=== PATIENT | female | born 1970 | race Two or more races ===

== ENCOUNTER 2023-07-08 15:38 | Inpatient (IN) | payer SELFPAY ==
[~2023-07-08] VITALS: Ht 152.4 cm; Wt 76.0 kg
[2023-07-08] MEDS ORDERED: amLODIPine BESYLATE 5 MG TAB PO ONE (16:30)
[2023-07-08 16:58] LABS: Alanine Aminotransferase 21 U/L (7-40); Albumin 4.8 g/dL (3.2-4.8); Alkaline Phosphatase 95 U/L (46-116); Anion Gap 8 (5-15); Aspartate Aminotransferase 15 U/L (13-40); BUN/Creatinine Ratio 33.3 (10.0-20.0); Bilirubin, Total 0.4 mg/dL (0.2-1.0); Blood Urea Nitrogen 17 mg/dL (9-23); Calcium 9.7 mg/dL (8.7-10.4); Carbon Dioxide 25 mmol/L (20-30); Chloride 106 mmol/L (98-107); Glucose 112 mg/dL (74-106); Potassium 4.1 mmol/L (3.5-5.1); Sodium 139 mmol/L (136-145); Total Protein 7.7 g/dL (5.7-8.2)
[2023-07-08 17:01] VITALS: PULSE 78; RESP 16; O2SAT 97
[2023-07-08 17:41] LABS: Basophils # (auto) 0.1 10 ^3/uL (0-0.2); Eosinophils # (auto) 0.2 10 ^3/uL (0-0.8); Eosinophils % (auto) 3.2 % (0.0-7.0); Hematocrit 30.7 % (41.0-53.0); Hemoglobin 9.4 g/dL (13.5-17.5); Lymphocytes # (auto) 3.1 10 ^3/uL (0.4-5.4); Lymphocytes % (auto) 43.1 % (10.0-50.0); Mean Corpuscular Hgb Conc. 30.5 g/dL (32.0-36.0); Mean Corpuscular Volume 62.3 fL (80.0-100.0); Monocytes # (auto) 0.6 10 ^3/uL (0-1.3); Monocytes % (auto) 7.6 % (0.0-12.0); Neutrophils # (auto) 3.3 10 ^3/uL (1.6-8.6); Neutrophils % (auto) 45.1 % (37.0-80.0); Nucleated Red Blood Cells % 0.3 %; Red Blood Cells 4.92 10^6/uL (4.5-5.90); White Blood Cell 7.3 10^3/uL (4.4-10.8)
[2023-07-08 17:43] LABS: Red Cell Distribution Width 25.2 % (11.8-14.3)
[2023-07-08 18:03] LABS: Urine Bacteria NONE SEEN /hpf (None Seen); Urine Blood Negative /uL (Negative); Urine Clarity Clear (Clear); Urine Protein, UAD Negative (Negative); Urine Specific Gravity 1.016 (1.001-1.035); Urine Urobilinogen Normal (Negative); Urine WBC 1 /hpf (0 - 3)
[2023-07-08 18:08] LABS: Urine Color STRAW (Yellow)
[2023-07-08 18:33] LABS: Platelet Estimate Increased
[2023-07-08 18:36] LABS: Anisocytosis Moderate; Hypochromia Marked
[2023-07-08 18:37] LABS: Ovalocytes MODERATE
[2023-07-08 18:38] LABS: Stomatocytes Few
[2023-07-08] MEDS ORDERED: cloNIDine HCL 0.1 MG TAB PO ONE (20:15)
[2023-07-08] MEDS ORDERED: hydrALAZINE HCL 20 MG/ML VL IV PRN (22:30)
[2023-07-08] MEDS ORDERED: ONDANSETRON HCL 4 MG/2 ML VIAL IV PRN (22:30)
[2023-07-08] MEDS ORDERED: ONDANSETRON ODT 4 MG TAB PO ONE (22:30)
[2023-07-08] MEDS ORDERED: NITROGLYCERIN 0.4 MG SL TAB SL PRN (22:30)
[2023-07-08] MEDS ORDERED: DOCUSATE SOD 100 MG CAP PO PRN (22:30)
[2023-07-08] MEDS ORDERED: MORPHINE SULFATE INJ 2 MG/ml SYRG IV PRN (22:30)
[2023-07-08] MEDS ORDERED: KETOROLAC TROMETH 60MG/2ML VIAL IM ONE (22:30)
[2023-07-08] MEDS ORDERED: ACETAMINOPHEN 325 MG TAB PO PRN (22:30)
[2023-07-09 01:58] VITALS: PULSE 84; RESP 20; O2SAT 98
[2023-07-09 06:56] LABS: Basophils # (auto) 0.1 10 ^3/uL (0-0.2); Eosinophils # (auto) 0.3 10 ^3/uL (0-0.8); Hemoglobin 9.1 g/dL (13.5-17.5); Lymphocytes # (auto) 2.8 10 ^3/uL (0.4-5.4); Nucleated Red Blood Cells % 0.1 %
[2023-07-09 06:59] LABS: Basophils % (auto) 1.1 % (0.0-2.0); Eosinophils % (auto) 4.5 % (0.0-7.0); Hematocrit 30.3 % (41.0-53.0); Lymphocytes % (auto) 46.9 % (10.0-50.0); Mean Corpuscular Hemoglobin 18.9 pg (28.0-32.0); Mean Corpuscular Hgb Conc. 30.2 g/dL (32.0-36.0); Mean Corpuscular Volume 62.5 fL (80.0-100.0); Monocytes # (auto) 0.5 10 ^3/uL (0-1.3); Monocytes % (auto) 8.1 % (0.0-12.0); Neutrophils # (auto) 2.4 10 ^3/uL (1.6-8.6); Neutrophils % (auto) 39.4 % (37.0-80.0); Red Blood Cells 4.84 10^6/uL (4.5-5.90); White Blood Cell 6.1 10^3/uL (4.4-10.8)
[2023-07-09 07:06] LABS: Alanine Aminotransferase 17 U/L (7-40); Albumin 4.3 g/dL (3.2-4.8); Alkaline Phosphatase 77 U/L (46-116); Anion Gap 9 (5-15); Aspartate Aminotransferase 14 U/L (13-40); BUN/Creatinine Ratio 29.6 (10.0-20.0); Blood Urea Nitrogen 16 mg/dL (9-23); Calcium 9.2 mg/dL (8.5-10.1); Carbon Dioxide 24 mmol/L (20-30); Chloride 106 mmol/L (98-107); Cholesterol 234 mg/dL (< 200); Glucose 100 mg/dL (74-106); LDL Cholesterol 183 mg/dL (< 100); Potassium 3.8 mmol/L (3.5-5.1); Red Cell Distribution Width 25.3 % (11.8-14.3); Sodium 139 mmol/L (136-145); Triglycerides 171 mg/dL (< 150)
[2023-07-09 07:07] LABS: Bilirubin, Total 0.5 mg/dL (0.2-1.0); HDL Cholesterol 48 mg/dL (40-59)
[2023-07-09 08:00] VITALS: PULSE 72; RESP 23; O2SAT 95
[2023-07-09] MEDS ORDERED: LISINOPRIL 10 MG TAB PO SCH (10:00)
[2023-07-09] MEDS ORDERED: amLODIPine BESYLATE 5 MG TAB PO SCH (10:00)
[2023-07-09 20:10] VITALS: PULSE 76; RESP 22; O2SAT 95
[2023-07-09] MEDS: ATORVASTATIN 20 MG TAB PO SCH (22:18)
[2023-07-09 23:27] VITALS: BP 155/81; PULSE 72; RESP 22; TEMP 97.7; O2SAT 98
[2023-07-09 23:45] VITALS: BP 155/81; PULSE 72; RESP 20; TEMP 97.7; O2SAT 100
[2023-07-10] VITALS (7 sets, daily range): BP systolic 115–136; BP diastolic 60–78; PULSE 71–100; RESP 17–20; TEMP 97.6–98.4; O2SAT 95–97
[2023-07-10 09:01] LABS: Basophils # (auto) 0 10 ^3/uL (0-0.2); Eosinophils # (auto) 0.3 10 ^3/uL (0-0.8); Mean Corpuscular Hgb Conc. 30.3 g/dL (32.0-36.0); Mean Corpuscular Volume 62.5 fL (80.0-100.0); Monocytes # (auto) 0.4 10 ^3/uL (0-1.3); White Blood Cell 5.7 10^3/uL (4.4-10.8)
[2023-07-10 09:04] LABS: Basophils % (auto) 0.7 % (0.0-2.0); Eosinophils % (auto) 4.6 % (0.0-7.0); Hematocrit 30.6 % (36.0-46.0); Hemoglobin 9.3 g/dL (12.2-16.2); Lymphocytes # (auto) 2.3 10 ^3/uL (0.4-5.4); Lymphocytes % (auto) 41.1 % (10.0-50.0); Mean Corpuscular Hemoglobin 18.9 pg (28.0-32.0); Monocytes % (auto) 6.5 % (0.0-12.0); Neutrophils # (auto) 2.7 10 ^3/uL (1.6-8.6); Neutrophils % (auto) 47.1 % (37.0-80.0); Red Blood Cells 4.89 10^6/uL (4.0-5.20)
[2023-07-10 09:07] LABS: Red Cell Distribution Width 25.1 % (11.8-14.3)
[2023-07-10 09:18] LABS: Alanine Aminotransferase 19 U/L (7-40); Albumin 4.3 g/dL (3.2-4.8); Alkaline Phosphatase 77 U/L (46-116); Anion Gap 8 (5-15); Aspartate Aminotransferase 13 U/L (13-40); BUN/Creatinine Ratio 27.6 (10.0-20.0); Blood Urea Nitrogen 16 mg/dL (9-23); Calcium 9.3 mg/dL (8.5-10.1); Carbon Dioxide 23 mmol/L (20-30); Chloride 107 mmol/L (98-107); Glucose 193 mg/dL (74-106); Potassium 3.7 mmol/L (3.5-5.1); Sodium 138 mmol/L (136-145)
[2023-07-10 09:19] LABS: Bilirubin, Total 0.5 mg/dL (0.2-1.0)
[2023-07-10] MEDS: amLODIPine BESYLATE 5 MG TAB PO SCH (09:51)
[2023-07-10] MEDS: LISINOPRIL 10 MG TAB PO SCH (09:51)
[2023-07-10] MEDS: ATORVASTATIN 20 MG TAB PO SCH (20:51)
[2023-07-11 05:00] VITALS: BP 101/68; PULSE 76; RESP 18; TEMP 98.1; O2SAT 96
[2023-07-11 07:16] LABS: Basophils # (auto) 0.1 10 ^3/uL (0-0.2); Hematocrit 32.9 % (36.0-46.0); Monocytes # (auto) 0.6 10 ^3/uL (0-1.3); Monocytes % (auto) 9.9 % (0.0-12.0); Nucleated Red Blood Cells % 0.1 %; White Blood Cell 5.9 10^3/uL (4.4-10.8)
[2023-07-11 07:19] LABS: Basophils % (auto) 0.9 % (0.0-2.0); Eosinophils # (auto) 0.3 10 ^3/uL (0-0.8); Eosinophils % (auto) 5.8 % (0.0-7.0); Hemoglobin 9.9 g/dL (12.2-16.2); Lymphocytes # (auto) 2.5 10 ^3/uL (0.4-5.4); Lymphocytes % (auto) 42.6 % (10.0-50.0); Mean Corpuscular Hemoglobin 19.2 pg (28.0-32.0); Mean Corpuscular Hgb Conc. 30.2 g/dL (32.0-36.0); Mean Corpuscular Volume 63.5 fL (80.0-100.0); Neutrophils # (auto) 2.4 10 ^3/uL (1.6-8.6); Neutrophils % (auto) 40.8 % (37.0-80.0); Red Blood Cells 5.18 10^6/uL (4.0-5.20)
[2023-07-11 07:26] LABS: Red Cell Distribution Width 24.9 % (11.8-14.3)
[2023-07-11 07:44] LABS: Alanine Aminotransferase 17 U/L (7-40); Albumin 4.5 g/dL (3.2-4.8); Alkaline Phosphatase 77 U/L (46-116); Anion Gap 9 (5-15); Aspartate Aminotransferase 14 U/L (13-40); BUN/Creatinine Ratio 27.9 (10.0-20.0); Blood Urea Nitrogen 17 mg/dL (9-23); Calcium 9.5 mg/dL (8.5-10.1); Carbon Dioxide 23 mmol/L (20-30); Chloride 107 mmol/L (98-107); Glucose 102 mg/dL (74-106); Potassium 4.3 mmol/L (3.5-5.1); Sodium 139 mmol/L (136-145)
[2023-07-11 07:45] LABS: Bilirubin, Total 0.5 mg/dL (0.2-1.0); Total Protein 7.3 g/dL (5.7-8.2)
[2023-07-11 08:00] VITALS: PULSE 66
[2023-07-11 09:00] VITALS: BP 122/75; PULSE 71; RESP 17; TEMP 98.6; O2SAT 96
[2023-07-11] MEDS ORDERED: LISI20TA56 PO (09:40)
[2023-07-11] MEDS ORDERED: AMLO1TAB23 PO (09:40)
[2023-07-11 10:31] LABS: Anisocytosis Moderate; Platelet Estimate Increased
[2023-07-11 10:32] LABS: Hypochromia Marked
[2023-07-11] MEDS: amLODIPine BESYLATE 5 MG TAB PO SCH (11:16)
[2023-07-11] MEDS: LISINOPRIL 10 MG TAB PO SCH (11:16)
[2023-07-11 13:00] VITALS: BP 138/62; PULSE 73; RESP 18; TEMP 98.8; O2SAT 97
== END 2023-07-11 16:15 | disposition home or self-care (01) | DRG 305 ==
LOC: ER 15:38 → EDBD 15:38 → EDSEX 23:02 → TELE 23:02 → TELE-WESTW 07-09 22:02
PROVIDERS: ADMIT Internal Medicine Geriatric Medicine; ATTEND Internal Medicine Geriatric Medicine
DX: I16.0 Hypertensive urgency (principal); E78.5 Hyperlipidemia, unspecified; E66.9 Obesity, unspecified; I10 Essential (primary) hypertension; R73.03 Prediabetes; R51.9 Headache, unspecified; Z91.199 Patient's noncompliance with other medical treatment and regimen due to unspecified reason; Z68.32 Body mass index [BMI] 32.0-32.9, adult
CPT/HCPCS: 36415; 70450; 71045; 80053; 80061; 81001; 81025; 83036; 84443; 84484; 85025; 93005; 93306; 96372; G0378; J1885; Q0162

== ENCOUNTER 2023-11-21 20:09 | Emergency (ER) | payer MEDICAID ==
[~2023-11-21] VITALS: Ht 152.4 cm; Wt 80.9 kg
[~2023-11-21 20:09] MED LIST: AMLO1TAB23 PO; LISI20TA56 PO
[2023-11-21 20:45] VITALS: BP 189/90; PULSE 84; RESP 16; O2SAT 98
[2023-11-21 20:59] LABS: Urine Bacteria None Seen /hpf (None Seen)
[2023-11-21] MEDS ORDERED: KETOROLAC TROMETH 60MG/2ML VIAL IM ONE (21:15)
[2023-11-21 21:20] LABS: Basophils # (auto) 0.1 10 ^3/uL (0-0.2); Hemoglobin 9.6 g/dL (12.2-16.2); Neutrophils % (auto) 34.3 % (37.0-80.0)
[2023-11-21 21:23] LABS: Basophils % (auto) 0.9 % (0.0-2.0); Eosinophils # (auto) 0.4 10 ^3/uL (0-0.8); Eosinophils % (auto) 4.1 % (0.0-7.0); Hematocrit 30.7 % (36.0-46.0); Lymphocytes # (auto) 4.6 10 ^3/uL (0.4-5.4); Lymphocytes % (auto) 51.6 % (10.0-50.0); Mean Corpuscular Hemoglobin 22.9 pg (28.0-32.0); Mean Corpuscular Hgb Conc. 31.2 g/dL (32.0-36.0); Mean Corpuscular Volume 73.5 fL (80.0-100.0); Monocytes # (auto) 0.8 10 ^3/uL (0-1.3); Monocytes % (auto) 9.1 % (0.0-12.0); Nucleated Red Blood Cells % 0.3 %; Red Blood Cells 4.18 10^6/uL (4.0-5.20); Red Cell Distribution Width 18.5 % (11.8-14.3); White Blood Cell 8.8 10^3/uL (4.4-10.8)
[2023-11-21 21:35] LABS: Alanine Aminotransferase 24 U/L (7-40); Albumin 4.8 g/dL (3.2-4.8); Alkaline Phosphatase 82 U/L (46-116); Anion Gap 5 (5-15); Aspartate Aminotransferase 17 U/L (13-40); BUN/Creatinine Ratio 29.6 (10.0-20.0); Bilirubin, Total 0.2 mg/dL (0.2-1.0); Blood Urea Nitrogen 21 mg/dL (9-23); Calcium 9.5 mg/dL (8.7-10.4); Carbon Dioxide 26 mmol/L (20-30); Chloride 108 mmol/L (98-107); Glucose 115 mg/dL (74-106); Lipase 52 U/L (12-53); Sodium 139 mmol/L (136-145); Total Protein 7.6 g/dL (5.7-8.2)
[2023-11-21 21:38] LABS: Urine Blood 2+ /uL (Negative); Urine Clarity Clear (Clear); Urine Color Light-Yellow (Yellow); Urine Protein, UAD TRACE (Negative); Urine Specific Gravity 1.026 (1.001-1.035); Urine Urobilinogen Normal (Negative); Urine WBC 2 /hpf (0 - 5)
[2023-11-21] MEDS ORDERED: IBUP-1455 PO (23:47)
[2023-11-21] MEDS ORDERED: DOCU-94 PO (23:47)
== END 2023-11-22 01:28 | disposition left against medical advice (07) ==
LOC: ER 20:09
DX: K59.00 Constipation, unspecified (principal); N20.0 Calculus of kidney; I10 Essential (primary) hypertension; Z79.899 Other long term (current) drug therapy; Z88.5 Allergy status to narcotic agent
CPT/HCPCS: 36415; 74176; 80053; 81001; 83690; 84484; 85025

== ENCOUNTER 2023-12-19 06:11 | Emergency (ER) | payer MEDICAID ==
[~2023-12-19] VITALS: Ht 165.1 cm; Wt 90.0 kg
[~2023-12-19 06:11] MED LIST changes: +DOCU-94 PO; +IBUP-1455 PO
[2023-12-19 07:34] LABS: Urine Bacteria None Seen /hpf (None Seen)
[2023-12-19 07:44] LABS: Eosinophils # (auto) 0.2 10 ^3/uL (0-0.8); Hemoglobin 10.3 g/dL (12.2-16.2); Monocytes # (auto) 0.6 10 ^3/uL (0-1.3); Nucleated Red Blood Cells % 0.2 %; White Blood Cell 7.5 10^3/uL (4.4-10.8)
[2023-12-19 07:45] LABS: Urine Blood Negative /uL (Negative); Urine Clarity Clear (Clear); Urine Color Light-Yellow (Yellow); Urine Protein, UAD Negative (Negative); Urine Specific Gravity 1.018 (1.001-1.035); Urine Urobilinogen Normal (Negative); Urine WBC 1 /hpf (0 - 5); Urine pH 5.5 (5.0-9.0)
[2023-12-19 07:46] LABS: Basophils # (auto) 0.1 10 ^3/uL (0-0.2); Basophils % (auto) 0.8 % (0.0-2.0); Eosinophils % (auto) 3.1 % (0.0-7.0); Hematocrit 33.7 % (36.0-46.0); Lymphocytes # (auto) 3.2 10 ^3/uL (0.4-5.4); Lymphocytes % (auto) 43.3 % (10.0-50.0); Mean Corpuscular Hemoglobin 22.6 pg (28.0-32.0); Mean Corpuscular Hgb Conc. 30.7 g/dL (32.0-36.0); Mean Corpuscular Volume 73.7 fL (80.0-100.0); Monocytes % (auto) 8.2 % (0.0-12.0); Neutrophils # (auto) 3.3 10 ^3/uL (1.6-8.6); Neutrophils % (auto) 44.6 % (37.0-80.0); Red Blood Cells 4.58 10^6/uL (4.0-5.20)
[2023-12-19 07:58] LABS: Alanine Aminotransferase 22 U/L (7-40); Albumin 4.4 g/dL (3.2-4.8); Alkaline Phosphatase 82 U/L (46-116); Anion Gap 5 (5-15); Aspartate Aminotransferase 13 U/L (13-40); Bilirubin, Total 0.2 mg/dL (0.2-1.0); Blood Urea Nitrogen 13 mg/dL (9-23); Carbon Dioxide 26 mmol/L (20-30); Chloride 108 mmol/L (98-107); Glucose 121 mg/dL (74-106); Lipase 49 U/L (12-53); Magnesium 1.9 mg/dL (1.6-2.6); Potassium 4.1 mmol/L (3.5-5.1); Sodium 139 mmol/L (136-145); Total Protein 7.6 g/dL (5.7-8.2)
[2023-12-19 08:06] LABS: INR 0.93 (0.9-1.15); Partial Thromboplastin Time 25.3 SEC (24.5-34.5); Prothrombin Time 9.9 sec (9.3-11.8)
[2023-12-19] MEDS ORDERED: FER325T PO (09:10)
[2023-12-19 09:20] VITALS: BP 139/79; PULSE 81; RESP 18; TEMP 98; O2SAT 98
== END 2023-12-19 09:30 | disposition home or self-care (01) ==
LOC: ER 06:11
DX: D50.9 Iron deficiency anemia, unspecified (principal); E86.0 Dehydration; R51.9 Headache, unspecified; Z88.6 Allergy status to analgesic agent
CPT/HCPCS: 36415; 70450; 74176; 80053; 81001; 81025; 83690; 83735; 84484; 85025; 85610; 85730

== ENCOUNTER 2025-01-23 23:02 | Inpatient (IN) | payer MEDICAID ==
[~2025-01-23] VITALS: Ht 160 cm; Wt 86.0 kg
[~2025-01-23 23:02] MED LIST changes: +FER325T PO
--- NOTE | 2025-01-23 23:28 | ED.PDOC ---
GI ASSESSMENT HPI Comments 55-year-old female came to ER for abdominal pain. Patient states she has been having intermittent episodes of abdominal pain for the past week. Abdominal pain located in his lower abdomen, radiating to her back, with the episodes of nausea and vomiting 3 times today. Denies any urinary symptoms or changes in bowel habits Chief Complaint: Abdominal Pain Time Seen by MD: 23:26 Primary Care Provider: NONE Reviewed Notes: Nurses Notes Allergies: Coded Allergies: Morphine (Verified Allergy, Severe, 07/08/23) Home Meds Active Scripts Ferrous Sulfate (FERROUS SULFATE) 325 Mg Tb, 1 TAB PO BID for 14 Days, #28 TAB 3 Refills Prov:DONG BAUTISTA MD 12/19/23 Ibuprofen Micronized (Ibuprofen) 800 Mg Tab, 800 MG PO Q8HP PRN, #30 TAB Prov:IGGY FOURNIER MD 11/21/23 Docusate Sodium (Colace) 100 Mg Cap, 1 CAP PO QHSP PRN, #30 CAP Prov:IGGY FOURNIER MD 11/21/23 Amlodipine Besylate (Amlodipine Besylate) 10 Mg Tab, 1 TAB PO DAILY, #30 TAB 5 Refills Prov:JOAN COLON MD 07/11/23 Lisinopril (Lisinopril) 20 Mg Tab, 1 TAB PO DAILY, #30 TAB 5 Refills Prov:JOAN COLON MD 07/11/23 Information Source: Patient Mode of Arrival: Ambulatory Timing: Days Duration: Intermittent Prehospital treatment: None Quality: Aching Vomitus: Watery Stool: Normal Recent: None Recent Hx of: Abdominal Operations Pain Location: Other (Lower abdomen) Review of Systems REVIEW OF SYSTEMS: No fever, no chills, or fatigue HEENT: No sore throat, no earache, no congestion, no neck pain. Cardiac: No chest pain. No palpitations. Lungs: No shortness of breath, no cough. GI: (+) nausea, (+) vomiting, no diarrhea, no constipation, (+) abdominal pain : No dysuria, frequency, or urgency. No hematuria. Musculoskeletal: No joint pain , no joint swelling, no extremity edema. (+) back pain Skin: No rash, no itching. Neuro: No headache, no dizziness, no weakness Vital Signs Vital Signs Date Time Temp Pulse Resp B/P (MAP) Pulse Ox O2 Delivery O2 Flow Rate FiO2 01/24/25 03:29 72 16 155/99 01/24/25 03:00 98.5 98 98.5 01/24/25 03:00 Room Air* 0 21 Physical Exam General: Awake, alert and oriented. No acute distress. Skin: Skin in warm, dry and intact. Appropriate color for ethnicity. Nailbeds pink with no cyanosis. HEENT: The head is normocephalic and atraumatic. Conjunctivae are clear without exudates or hemorrhage. Sclera is non-icteric. EOM are intact. No signs of nystagmus. Eyelids are normal in appearance without swelling or lesions. Oral mucosa is pink and moist Neck: The neck is supple with normal range of motion. No JVD. Cardiac: Heart rate and rhythm are normal. No murmurs, gallops, or rubs are auscultated. Respiratory: No signs of respiratory distress. Lung sounds are clear in all lobes bilaterally without rales, rhonchi, or wheezes. Abdominal: Abdomen is generally tender and distended. Bowel sounds are present and normoactive in all four quadrants. No CVA tenderness Extremities: Upper and lower extremities are atraumatic in appearance without deformity or edema. Neurological: The patient is awake, alert and oriented to person, place, and time with normal speech. Speech is clear. There is no facial asymmetry. Normal gait Psychiatric: Appropriate mood and affect. Good judgement and insight. 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 Was a procedure done?: No GI differential Dx Differential Diagnosis: Cholecystitis, Constipation, Diverticular disease, Gastritis/PUD, Gastroenteritis, Hernia, Ovarian cyst/torsion, Pancreatitis, UTI, Urolithiasis X-Ray, Labs, Meds, VS Vital Signs Date Time Temp Pulse Resp B/P (MAP) Pulse Ox O2 Delivery O2 Flow Rate FiO2 01/24/25 03:29 72 16 155/99 01/24/25 03:00 98.5 72 14 155/99 (117) 98 98.5 01/24/25 03:00 Room Air* 0 21 01/23/25 23:14 95 18 151/97 (115) 100 Lab Test 01/23/25 23:26 01/23/25 23:05 Range/Units White Blood Count 7.6 4.4-10.8 10^3/uL Red Blood Count 4.60 4.0-5.20 10^6/uL Hemoglobin 14.2 12.2-16.2 g/dL Hematocrit 41.8 36.0-46.0 % Mean Corpuscular Volume 90.9 80.0-100.0 fL Mean Corpuscular Hemoglobin 30.8 28.0-32.0 pg Mean Corpuscular Hemoglobin Concent 33.9 32.0-36.0 g/dL Red Cell Distribution Width 14.1 11.8-14.3 % Platelet Count 306 140-450 10^3/uL Mean Platelet Volume 7.7 6.9-10.8 fL Neutrophils (%) (Auto) 40.2 37.0-80.0 % Lymphocytes (%) (Auto) 48.0 10.0-50.0 % Monocytes (%) (Auto) 7.6 0.0-12.0 % Eosinophils (%) (Auto) 3.5 0.0-7.0 % Basophils (%) (Auto) 0.7 0.0-2.0 % Neutrophils # (Auto) 3.1 1.6-8.6 10 ^3/uL Lymphocytes # (Auto) 3.7 0.4-5.4 10 ^3/uL Monocytes # (Auto) 0.6 0-1.3 10 ^3/uL Eosinophils # (Auto) 0.3 0-0.8 10 ^3/uL Basophils # (Auto) 0.1 0-0.2 10 ^3/uL Nucleated Red Blood Cells 0.3 % Sodium Level 143 136-145 mmol/L Potassium Level 4.2 3.5-5.1 mmol/L Chloride Level 108 H 98-107 mmol/L Carbon Dioxide Level 26 20-31 mmol/L Anion Gap 9 5-15 Blood Urea Nitrogen 18 9-23 mg/dL Creatinine 0.77 0.550-1.02 mg/dL Glomerular Filtration Rate Calc 92 >90 mL/min BUN/Creatinine Ratio 23.4 H 10.0-20.0 Serum Glucose 191 H 74-106 mg/dL Lactic Acid Level 1.5 0.4-2.0 mmol/L Calcium Level 10.8 H 8.7-10.4 mg/dL Total Bilirubin 0.3 0.2-1.0 mg/dL Aspartate Amino Transferase (AST) 50 H <34 U/L Alanine Aminotransferase (ALT) 80 H 7-40 U/L Alkaline Phosphatase 96 46-116 U/L Total Protein 7.9 5.7-8.2 g/dL Albumin 5.0 H 3.2-4.8 g/dL Urine Color Light-yellow Yellow Urine Clarity Clear Clear Urine pH 6.0 5.0-9.0 Urine Specific [place] 1.024 1.001-1.035 Urine Protein Negative Negative Urine Ketones Negative Negative Urine Blood 1+ H Negative /uL Urine Nitrite Negative Negative Urine Bilirubin Negative Negative Urine Urobilinogen Normal Negative mg/dL Urine Leukocyte Esterase 2+ Negative /uL Urine RBC 11 0 - 4 /hpf Urine Microscopic WBC 32 H 0-5 /HPF Urine Squamous Epithelial Cells Few <5 /hpf Urine Transitional Epithelial Cells Few <2 /hpf Urine Bacteria Few H None Seen /hpf Urine Hyaline Casts Few 0 - 2 /lpf Urine Mucus Few None Seen Urine Glucose Trace Normal mg/dL Current Medications Medications (Trade) Dose Ordered Sig/Nick Route Start Time Stop Time Status Last Admin Morphine Sulfate 2 mg ONCE ONCE IV 01/23/25 23:30 01/23/25 23:31 DC 01/24/25 03:29 Ondansetron HCl (Zofran) 4 mg ONCE ONCE IV 01/23/25 23:30 01/23/25 23:31 DC 01/24/25 03:30 COMPUTERIZED TOMOGRAPHY ABDOMEN AND PELVIS WITHOUT CONTRAST REASON FOR EXAM: Generalized abdominal pain, abdominal distention COMPARISON: CT CT AB PEL WO CON-NO ORAL OR IV on DOS: 12/19/23, CT CT AB PEL WO CON-NO ORAL OR IV on DOS: 11/21/23 TECHNIQUE: Spiral scans were acquired from the diaphragm to the symphysis pubis without intravenous contrast administration. 2-D coronal and sagittal reformatted images were provided. Radiation optimization: All CT scans at this facility use at least one of these dose optimization techniques: Automated exposure control mA and/or kV adjustment per patient size (includes targeted exams where dose is matched to clinical indication) or iterative reconstruction. RADIATION DOSE: CTDI: 16 mGy DLP: 998 mGy-cm FINDINGS: Respiratory motion artifact degrades evaluation of the lung bases. There is no pleural effusion. There is no pericardial effusion. The spleen is not enlarged. The liver is enlarged at 19.6 cm. The liver is diffusely hypoattenuating. There are calcified gallstones. The gallbladder is not distended. Evaluation of the abdominal organs is suboptimal in the absence of intravenous contrast. Unenhanced appearance of the pancreas is unremarkable. The adrenal glands are normal. The kidneys are similar in size. There is no hydronephrosis of either kidney. There is no abdominal aortic aneurysm. No pathologic lymphadenopathy is identified by size criteria. There is no free fluid in the abdomen or pelvis. The urinary bladder is unremarkable. The uterus and ovaries are within normal limits. The colonic stool burden is small to moderate. The appendix is normal. There is no pathologic distention of the small bowel to suggest obstruction. There is a fat containing umbilical hernia. There is a lipoma within the right rectus abdominus musculature. No acute osseous abnormality is identified. IMPRESSION: Enlarged hypoattenuating liver. This may be secondary to steatosis or other diffuse hepatic process. Correlate clinically and with liver function tests. Normal appendix. No evidence of bowel obstruction. Time of 1ST Reevaluation: 23:24 Reevaluation 1ST: Unchanged Patient Education/Counseling: Prognosis Family Education/Counseling: No Family Present SEPSIS Sepsis Screen Physician Orders Ct Ab Pel Wo Con-No Oral Or Iv (01/23/25 23:16) Abdomen Limited (01/24/25 00:21) Vital Signs Date Time Temp Pulse Resp B/P (MAP) Pulse Ox O2 Delivery O2 Flow Rate FiO2 01/24/25 03:29 72 16 155/99 01/24/25 03:00 98.5 72 14 155/99 (117) 98 98.5 01/24/25 03:00 Room Air* 0 21 01/23/25 23:14 95 18 151/97 (115) 100 Laboratory Tests Test 01/23/25 23:26 Lactic Acid Level 1.5 mmol/L (0.4-2.0) White Blood Count 7.6 10^3/uL (4.4-10.8) Medications Medications Dose Ordered Sig/Nick Route Start Time Stop Time Status Last Admin Dose Admin Morphine Sulfate 2 mg ONCE ONCE IV 01/23/25 23:30 01/23/25 23:31 DC 01/24/25 03:29 Ondansetron HCl 4 mg ONCE ONCE IV 01/23/25 23:30 01/23/25 23:31 DC 01/24/25 03:30 Departure 1 Departure Time of Disposition: 00:20 Impression: Primary Impression: Intractable abdominal pain Additional Impression: Hepatomegaly Disposition: ADMITTED INPATIENT Condition: Stable Comments Patient admitted to hospitalist service for further treatment, evaluation and monitoring. Critical Care Note Critical Care Time?: No Stability Stability form required: No Heart Score Heart Score: Heart Score Response (Comments) Value History N/A 0 EKG N/A 0 Age N/A 0 Risk Factors N/A 0 Troponin N/A 0 Total 0 I personally scribed for NATO SINGH MD ([email or web address]) on 01/23/25 at 23:28. Electronically submitted by Luis Campos ([email or web address]). I personally scribed for NATO SINGH MD ([email or web address]) on 01/24/25 at 00:29. Electronically submitted by Luis Campos ([email or web address]). NATO SINGH MD Jan 23, 2025 23:28
[2025-01-23 23:39] LABS: Basophils # (auto) 0.1 10 ^3/uL (0-0.2); Basophils % (auto) 0.7 % (0.0-2.0); Eosinophils # (auto) 0.3 10 ^3/uL (0-0.8); Eosinophils % (auto) 3.5 % (0.0-7.0); Hematocrit 41.8 % (36.0-46.0); Hemoglobin 14.2 g/dL (12.2-16.2); Lymphocytes # (auto) 3.7 10 ^3/uL (0.4-5.4); Mean Corpuscular Hemoglobin 30.8 pg (28.0-32.0); Mean Corpuscular Hgb Conc. 33.9 g/dL (32.0-36.0); Mean Corpuscular Volume 90.9 fL (80.0-100.0); Monocytes # (auto) 0.6 10 ^3/uL (0-1.3); Monocytes % (auto) 7.6 % (0.0-12.0); Neutrophils # (auto) 3.1 10 ^3/uL (1.6-8.6); Neutrophils % (auto) 40.2 % (37.0-80.0); Nucleated Red Blood Cells % 0.3 %; Platelet Count (auto) 306 10^3/uL (140-450); Red Cell Distribution Width 14.1 % (11.8-14.3); White Blood Cell 7.6 10^3/uL (4.4-10.8)
[2025-01-23 23:54] LABS: Alkaline Phosphatase 96 U/L (46-116); Anion Gap 9 (5-15); BUN/Creatinine Ratio 23.4 (10.0-20.0); Blood Urea Nitrogen 18 mg/dL (9-23); Carbon Dioxide 26 mmol/L (20-31); Potassium 4.2 mmol/L (3.5-5.1); Sodium 143 mmol/L (136-145); Total Protein 7.9 g/dL (5.7-8.2)
[2025-01-24 00:05] LABS: Alanine Aminotransferase 80 U/L (7-40); Aspartate Aminotransferase 50 U/L (<34); Bilirubin, Total 0.3 mg/dL (0.2-1.0); Calcium 10.8 mg/dL (8.7-10.4); Chloride 108 mmol/L (98-107); Glucose 191 mg/dL (74-106)
[2025-01-24 00:12] LABS: Urine Bacteria FEW /hpf (None Seen); Urine Blood 1+ /uL (Negative); Urine Clarity Clear (Clear); Urine Color Light-Yellow (Yellow); Urine Hyaline Cast FEW /lpf (0 - 2); Urine Mucus FEW (None Seen); Urine Protein, UAD Negative (Negative); Urine Specific Gravity 1.024 (1.001-1.035); Urine Squamous Epithelial Cell FEW /hpf (<5); Urine Urobilinogen Normal (Negative); Urine WBC 32 /HPF (0-5)
--- NOTE | 2025-01-24 00:18 | DVH ---
COMPUTERIZED TOMOGRAPHY ABDOMEN AND PELVIS WITHOUT CONTRAST REASON FOR EXAM: Generalized abdominal pain, abdominal distention COMPARISON: CT CT AB PEL WO CON-NO ORAL OR IV on DOS: 12/19/23, CT CT AB PEL WO CON-NO ORAL OR IV on D OS: 11/21/23 TECHNIQUE: Spiral scans were acquired from the diaphragm to the symphysis pubis without intravenous c ontrast administration. 2-D coronal and sagittal reformatted images were provided. Radiation optimiza tion: All CT scans at this facility use at least one of these dose optimization techniques: Automated exposure control mA and/or kV adjustment per patient size (includes targeted exams where dose is mat ched to clinical indication) or iterative reconstruction. RADIATION DOSE: CTDI: 16 mGy DLP: 998 mGy-cm FINDINGS: Respiratory motion artifact degrades evaluation of the lung bases. There is no pleural effusion. The re is no pericardial effusion. The spleen is not enlarged. The liver is enlarged at 19.6 cm. The liver is diffusely hypoattenuating. There are calcified gallstones. The gallbladder is not distended. Evaluation of the abdominal orga ns is suboptimal in the absence of intravenous contrast. Unenhanced appearance of the pancreas is unr emarkable. The adrenal glands are normal. The kidneys are similar in size. There is no hydronephrosi s of either kidney. There is no abdominal aortic aneurysm. No pathologic lymphadenopathy is identifie d by size criteria. There is no free fluid in the abdomen or pelvis. The urinary bladder is unremar kable. The uterus and ovaries are within normal limits. The colonic stool burden is small to moderat e. The appendix is normal. There is no pathologic distention of the small bowel to suggest obstructi on. There is a fat containing umbilical hernia. There is a lipoma within the right rectus abdominus m usculature. No acute osseous abnormality is identified. IMPRESSION: Enlarged hypoattenuating liver. This may be secondary to steatosis or other diffuse hepatic process. Correlate clinically and with liver function tests. Normal appendix. No evidence of bowel obstruction.
--- NOTE | 2025-01-24 01:00 | DVH ---
INDICATION: Right upper quadrant, abdominal pain, inc LFT, hepatomegaly TECHNIQUE: Multiple real-time sonographic images were obtained of the right upper quadrant. COMPARISON: None FINDINGS: The liver demonstrates increased echogenicity. The liver measures 20.1 cm. There is no intrahepatic or extrahepatic ductal dilatation. The common duct measures 4 mm. A gallstone is seen. The gallbladder wall measures 1.8 mm and is within normal limits. The right kidney measures 12.5 cm. The right kidney is normal in contour, size, and shape. The echo genicity is normal. There is no hydronephrosis. The pancreas is not well visualized due to overlying bowel gas. IMPRESSION: 1. Hepatomegaly and increased echogenicity within the liver, which may be referable to hepatic steato sis or intrinsic hepatocellular disease. 2. Cholelithiasis without sonographic evidence for acute cholecystitis.
[2025-01-24] MEDS: MORPHINE SULFATE INJ 2 MG/ml SYRG IV ONE (03:29)
[2025-01-24] MEDS: ONDANSETRON HCL 4 MG/2 ML VIAL IV ONE (03:30)
--- NOTE | 2025-01-24 08:28 | DVHHP2 ---
History of Present Illness History of Present Illness 55-year-old female past medical history of hypertension, ?Unknown heart disease came to ER for abdominal pain X 1 week. Patient states she has been having intermittent episodes of abdominal pain for the past week. Abdominal pain located in his lower abdomen, radiating to her back, with the episodes of nausea and vomiting 3 times today. Denies any urinary symptoms or changes in bowel habits. Patient endorses she has some heart medications she takes but she does not know for what diagnosis and family will be bringing in the meds. Review of Systems Allergies: Coded Allergies: NO KNOWN ALLERGIES (Unverified , 01/24/25) Medications Current Medications Medications Dose Ordered Sig/Nick Route Start Time Stop Time Status Last Admin Dose Admin Ketorolac Tromethamine 15 mg ONCE PRN IV 01/24/25 06:00 01/29/25 05:59 Exam Vital Signs Vital Signs Date Time Temp Pulse Resp B/P (MAP) Pulse Ox O2 Delivery O2 Flow Rate FiO2 01/24/25 03:59 82 16 145/97 01/24/25 03:55 98.3 96 98.3 01/24/25 03:00 Room Air* 0 21 Exam GEN: Healthy appearing, well-developed, NAD. HEENT: NC/AT; MMM. CV: RRR, no m/r/g. LUNGS: CTAB, no w/r/c. ABD: Soft, NT/ND, NBS, no masses or organomegaly. Suprapubic tenderness. EXT: skin Warm, well perfused. no rashes. No clubbing, cyanosis, or edema. NEURO: Ambulating with no limitations. No focal deficits. Right paraspinal tenderness T10 Labs/Xrays Labs Test 01/23/25 23:26 01/23/25 23:05 Range/Units White Blood Count 7.6 4.4-10.8 10^3/uL Red Blood Count 4.60 4.0-5.20 10^6/uL Hemoglobin 14.2 12.2-16.2 g/dL Hematocrit 41.8 36.0-46.0 % Mean Corpuscular Volume 90.9 80.0-100.0 fL Mean Corpuscular Hemoglobin 30.8 28.0-32.0 pg Mean Corpuscular Hemoglobin Concent 33.9 32.0-36.0 g/dL Red Cell Distribution Width 14.1 11.8-14.3 % Platelet Count 306 140-450 10^3/uL Mean Platelet Volume 7.7 6.9-10.8 fL Neutrophils (%) (Auto) 40.2 37.0-80.0 % Lymphocytes (%) (Auto) 48.0 10.0-50.0 % Monocytes (%) (Auto) 7.6 0.0-12.0 % Eosinophils (%) (Auto) 3.5 0.0-7.0 % Basophils (%) (Auto) 0.7 0.0-2.0 % Neutrophils # (Auto) 3.1 1.6-8.6 10 ^3/uL Lymphocytes # (Auto) 3.7 0.4-5.4 10 ^3/uL Monocytes # (Auto) 0.6 0-1.3 10 ^3/uL Eosinophils # (Auto) 0.3 0-0.8 10 ^3/uL Basophils # (Auto) 0.1 0-0.2 10 ^3/uL Nucleated Red Blood Cells 0.3 % Sodium Level 143 136-145 mmol/L Potassium Level 4.2 3.5-5.1 mmol/L Chloride Level 108 H 98-107 mmol/L Carbon Dioxide Level 26 20-31 mmol/L Anion Gap 9 5-15 Blood Urea Nitrogen 18 9-23 mg/dL Creatinine 0.77 0.550-1.02 mg/dL Glomerular Filtration Rate Calc 92 >90 mL/min BUN/Creatinine Ratio 23.4 H 10.0-20.0 Serum Glucose 191 H 74-106 mg/dL Lactic Acid Level 1.5 0.4-2.0 mmol/L Calcium Level 10.8 H 8.7-10.4 mg/dL Total Bilirubin 0.3 0.2-1.0 mg/dL Aspartate Amino Transferase (AST) 50 H <34 U/L Alanine Aminotransferase (ALT) 80 H 7-40 U/L Alkaline Phosphatase 96 46-116 U/L Total Protein 7.9 5.7-8.2 g/dL Albumin 5.0 H 3.2-4.8 g/dL Urine Color Light-yellow Yellow Urine Clarity Clear Clear Urine pH 6.0 5.0-9.0 Urine Specific [place] 1.024 1.001-1.035 Urine Protein Negative Negative Urine Ketones Negative Negative Urine Blood 1+ H Negative /uL Urine Nitrite Negative Negative Urine Bilirubin Negative Negative Urine Urobilinogen Normal Negative mg/dL Urine Leukocyte Esterase 2+ Negative /uL Urine RBC 11 0 - 4 /hpf Urine Microscopic WBC 32 H 0-5 /HPF Urine Squamous Epithelial Cells Few <5 /hpf Urine Transitional Epithelial Cells Few <2 /hpf Urine Bacteria Few H None Seen /hpf Urine Hyaline Casts Few 0 - 2 /lpf Urine Mucus Few None Seen Urine Glucose Trace Normal mg/dL Assessment/Plan Assessment/Plan Diagnosis: Intractable abdominal pain Intractable nausea acute Gastroenteritis, infectious etiology likely Acute complicated cystitis Hypertension IV antibiotics Unasyn -continue home meds Prn pain meds Tylenol, [place], morphine Prn antiemetics clear liquid diet. Cardiac diet PPI IV daily Lovenox daily Med surge Full code Plan discussed with: Patient Date of Service: Jan 24, 2025 Billing Provider: ALEX WATERS MD Common Visit Codes: [id number] INP/OBS CARE (HIGH) Secondary Visit Codes: [id number] CARE PLAN 30 MINUTES ALEX WATERS MD Jan 24, 2025 08:28
[2025-01-24] MEDS: AMPICILLIN & SULBACTAM SODIUM 3 GM in SODIUM CHL 0.9% 100 ML IV SCH (08:30)
[2025-01-24] MEDS ORDERED: ONDANSETRON HCL 4 MG/2 ML VIAL IV PRN (08:30)
[2025-01-24] MEDS ORDERED: ACETAMINOPHEN 325 MG TAB PO PRN (08:30)
[2025-01-24] MEDS ORDERED: ONDANSETRON ODT 4 MG TAB PO PRN (10:00)
[2025-01-24] MEDS: LISINOPRIL 20 MG TAB PO SCH (10:10)
[2025-01-24] MEDS: ENOXAPARIN SOD 40 MG/0.4 ML SYRINGE SC SCH (10:10)
[2025-01-24] MEDS: SODIUM CHLORIDE 0.9% 1,000 ML IV ONE (10:10)
[2025-01-24] MEDS: KETOROLAC TROMETH 30 MG/ML 1ML VIAL IV PRN (10:12)
[2025-01-24] MEDS ORDERED: MORPHINE SULFATE 4 MG/ML SYR/VIAL IV PRN (10:15)
[2025-01-24] MEDS ORDERED: LORazepam 2MG/ML-1ML VIAL ONE (10:15)
[2025-01-24 12:00] VITALS: BP 121/66; PULSE 64; RESP 16; TEMP 98.6; O2SAT 97
[2025-01-24 12:17] VITALS: BP 121/66; PULSE 64; RESP 16; TEMP 97.8; O2SAT 94
[2025-01-24 12:18] VITALS: BP 121/66; PULSE 64; RESP 16; TEMP 97.8; O2SAT 94
[2025-01-24 16:00] VITALS: BP 121/66; RESP 18; O2SAT 96
[2025-01-24] MEDS: HYDROcodone-ACET 5/325MG TAB PO PRN (19:21)
[2025-01-24 19:29] VITALS: BP 136/72; PULSE 68; RESP 16; TEMP 97.8; O2SAT 94
[2025-01-24 21:00] VITALS: BP 151/72; PULSE 63; RESP 18; TEMP 97.8; O2SAT 95
[2025-01-25] VITALS (7 sets, daily range): BP systolic 107–153; BP diastolic 54–90; PULSE 59–68; RESP 16–18; TEMP 97.7–98.3; O2SAT 95–97
[2025-01-25 06:55] LABS: Basophils # (auto) 0 10 ^3/uL (0-0.2); Basophils % (auto) 0.6 % (0.0-2.0); Eosinophils # (auto) 0.3 10 ^3/uL (0-0.8); Eosinophils % (auto) 4.9 % (0.0-7.0); Hemoglobin 13.4 g/dL (12.2-16.2); Lymphocytes % (auto) 46.4 % (10.0-50.0); Mean Corpuscular Hemoglobin 30.8 pg (28.0-32.0); Mean Corpuscular Hgb Conc. 34.3 g/dL (32.0-36.0); Mean Corpuscular Volume 89.9 fL (80.0-100.0); Monocytes # (auto) 0.6 10 ^3/uL (0-1.3); Monocytes % (auto) 8.8 % (0.0-12.0); Neutrophils # (auto) 2.5 10 ^3/uL (1.6-8.6); Neutrophils % (auto) 39.3 % (37.0-80.0); Nucleated Red Blood Cells % 0.2 %; Platelet Count (auto) 297 10^3/uL (140-450); Red Blood Cells 4.34 10^6/uL (4.0-5.20); Red Cell Distribution Width 14.3 % (11.8-14.3); White Blood Cell 6.5 10^3/uL (4.4-10.8)
[2025-01-25 07:16] LABS: Albumin 4.3 g/dL (3.2-4.8); Alkaline Phosphatase 72 U/L (46-116); Anion Gap 10 (5-15); BUN/Creatinine Ratio 18.6 (10.0-20.0); Bilirubin, Total 0.5 mg/dL (0.2-1.0); Blood Urea Nitrogen 11 mg/dL (9-23); Calcium 9.7 mg/dL (8.7-10.4); Carbon Dioxide 25 mmol/L (20-31); Chloride 107 mmol/L (98-107); Potassium 3.9 mmol/L (3.5-5.1); Sodium 142 mmol/L (136-145); Total Protein 6.9 g/dL (5.7-8.2)
[2025-01-25 07:18] LABS: Alanine Aminotransferase 89 U/L (7-40); Aspartate Aminotransferase 75 U/L (<34); Glucose 141 mg/dL (74-106)
[2025-01-25] MEDS: amLODIPine BESYLATE 5 MG TAB PO SCH (10:00)
[2025-01-25] MEDS ORDERED: MAALOX PLUS or MAALOX 30 ML PO PRN (14:45)
[2025-01-25] MEDS ORDERED: KETOROLAC TROMETH 30 MG/ML 1ML VIAL IV PRN (14:45)
--- NOTE | 2025-01-25 15:36 | DVHPNRES ---
Progress Note Date Seen: Jan 25, 2025 Resident Creating Document: REGULO HERNANDEZ RESIDENT Has the PT tested + for MRSA If YES, has PT been informed?: No Medical Necessity Reason Pt with a Central, PICC or Fol: No Subjective Review of Systems A 55-year-old female past medical history of hypertension came to ER for abdominal pain X 1 week. Patient states she has been having intermittent episodes of abdominal pain for the past week. Abdominal pain located in his lower abdomen, radiating to her back, with the episodes of nausea and vomiting 3 times today. 01/25/25: Enlarged hypoattenuating liver. This may be secondary to steatosis or other diffuse hepatic process, UA UTI, LFTs elevated Objective vital signs Vital Sign Date Time Temp Pulse Resp B/P (MAP) Pulse Ox O2 Delivery O2 Flow Rate FiO2 01/25/25 13:00 98.0 61 17 138/73 (94) 97 98.0 01/24/25 20:51 Room Air* 0 21 Total Intake and Output 01/24/25 01/24/25 01/25/25 15:00 23:00 07:00 Intake Total 200 ml 300 ml Balance 200 ml 300 ml medications Current Medications Medications Dose Ordered Sig/Nick Route Start Time Stop Time Status Last Admin Dose Admin Ketorolac Tromethamine 15 mg ONCE PRN IV 01/24/25 06:00 01/29/25 05:59 01/24/25 10:12 15 MG Acetaminophen/ Hydrocodone Bitart 1 tab Q4HP PRN PO 01/24/25 08:30 01/25/25 09:07 1 TAB Enoxaparin Sodium 40 mg DAILY SC 01/24/25 10:00 01/25/25 09:08 40 MG Acetaminophen 650 mg Q6HP PRN PO 01/24/25 08:30 Morphine Sulfate 2 mg Q4HPRN PRN IV 01/24/25 10:15 Ampicillin Sodium/ Sulbactam Sodium 3 gm/Sodium Chloride 100 ml @ 100 mls/hr Q6H IV 01/24/25 08:30 01/25/25 09:08 100 MLS/HR Lisinopril 20 mg DAILY PO 01/24/25 10:00 01/24/25 10:10 20 MG Amlodipine Besylate 10 mg DAILY PO 01/25/25 10:00 Ondansetron HCl 4 mg Q4HP PRN PO 01/24/25 10:15 Ketorolac Tromethamine 15 mg Q6HPRN PRN IV 01/25/25 14:45 01/30/25 14:44 Pantoprazole Sodium 40 mg DAILY IV 01/25/25 14:45 Al Hydrox/Mg Hydrox/Simethicone 15 ml Q8HP PRN PO 01/25/25 14:45 Examination GEN: Healthy appearing, well-developed, NAD. HEENT: NC/AT; MMM. CV: RRR, no m/r/g. LUNGS: CTAB, no w/r/c. ABD: Soft, NT/ND, NBS, no masses or organomegaly. Suprapubic and epigastric tenderness. EXT: skin Warm, well perfused. no rashes. No clubbing, cyanosis, or edema. NEURO: Ambulating with no limitations. No focal deficits. laboratory and microbiology Laboratory Tests 01/25/25 06:40 Test 01/25/25 06:40 Range/Units Serum Glucose 141 H 74-106 mg/dL Problem List/Assessment/Plan Problem List/Assessment/Plan #Intractable abdominal pain #Intractable nausea #acute Gastroenteritis, infectious etiology likely #Acute complicated cystitis #Hypertension #GERD #Fatty liver #Transaminitis due to above Clear liquid diet Unasyn IV Protonix IV Ketorolac Tylenol Maalox Lisinopril Amlodipine Case discussed with Dr Briceno Plan discussed with: Patient, Other My Orders My Orders Orders - REGULO HERNANDEZ Procedure Category Date Status Time Sodium Chloride 0.9% PHA 01/25/25 In Process 14:45 Ketorolac Injection PHA 01/25/25 In Process (Toradol Injection) 14:45 Pantoprazole PHA 01/25/25 In Process (Protonix) 14:45 Alum & Mag PHA 01/25/25 In Process Hydrox-Simethicone 14:45 Date of Service: Jan 25, 2025 Billing Provider: CRAIG BRICENO MD Common Visit Codes: [id number] INP/OBS CARE(HIGH) REGULO HERNANDEZ RESIDENT Jan 25, 2025 15:36 CRAIG BRICENO MD Feb 01, 2025 21:24
[2025-01-25] MEDS: ONDANSETRON ODT 4 MG TAB PO PRN (15:40)
[2025-01-25] MEDS: PANTOPRAZOLE 40 MG/10 ML VIAL INJ IV SCH (15:40)
[2025-01-25] MEDS: SODIUM CHLORIDE 0.9% 1,000 ML IV ONE (16:06)
[2025-01-26 00:58] VITALS: BP 137/76; PULSE 65; RESP 16; TEMP 98.1; O2SAT 99
[2025-01-26 04:58] VITALS: BP 124/85; PULSE 74; RESP 17; TEMP 98.6; O2SAT 97
[2025-01-26 08:30] VITALS: BP 116/78; PULSE 62; RESP 17; TEMP 97.7; O2SAT 95
[2025-01-26] MEDS ORDERED: ACET-1079 PO (10:28)
[2025-01-26] MEDS ORDERED: PANT40TA2 PO (10:28)
[2025-01-26] MEDS ORDERED: CIP500T PO (10:28)
[2025-01-26] MEDS ORDERED: CALC600C PO (10:28)
[2025-01-26 13:30] VITALS: BP 120/65; PULSE 66; RESP 18; TEMP 97.9; O2SAT 96
--- NOTE | 2025-01-26 19:12 | DVHDSRES ---
Discharge Summary Date of Admission Resident Creating Document: REGULO HERNANDEZ RESIDENT Jan 24, 2025 at 08:21 Date of Discharge: Jan 26, 2025 Admitting Diagnosis #Intractable abdominal pain Labs/Diagnostic Data: Laboratory Results Test 01/25/25 06:40 01/23/25 23:26 01/23/25 23:05 White Blood Count 6.5 10^3/uL (4.4-10.8) Red Blood Count 4.34 10^6/uL (4.0-5.20) Hemoglobin 13.4 g/dL (12.2-16.2) Hematocrit 39.0 % (36.0-46.0) Mean Corpuscular Volume 89.9 fL (80.0-100.0) Mean Corpuscular Hemoglobin 30.8 pg (28.0-32.0) Mean Corpuscular Hemoglobin Concent 34.3 g/dL (32.0-36.0) Red Cell Distribution Width 14.3 % (11.8-14.3) Platelet Count 297 10^3/uL (140-450) Mean Platelet Volume 7.5 fL (6.9-10.8) Neutrophils (%) (Auto) 39.3 % (37.0-80.0) Lymphocytes (%) (Auto) 46.4 % (10.0-50.0) Monocytes (%) (Auto) 8.8 % (0.0-12.0) Eosinophils (%) (Auto) 4.9 % (0.0-7.0) Basophils (%) (Auto) 0.6 % (0.0-2.0) Neutrophils # (Auto) 2.5 10 ^3/uL (1.6-8.6) Lymphocytes # (Auto) 3.0 10 ^3/uL (0.4-5.4) Monocytes # (Auto) 0.6 10 ^3/uL (0-1.3) Eosinophils # (Auto) 0.3 10 ^3/uL (0-0.8) Basophils # (Auto) 0 10 ^3/uL (0-0.2) Nucleated Red Blood Cells 0.2 % Sodium Level 142 mmol/L (136-145) Potassium Level 3.9 mmol/L (3.5-5.1) Chloride Level 107 mmol/L (98-107) Carbon Dioxide Level 25 mmol/L (20-31) Anion Gap 10 (5-15) Blood Urea Nitrogen 11 mg/dL (9-23) Creatinine 0.59 mg/dL (0.550-1.02) Glomerular Filtration Rate Calc 108 mL/min (>90) BUN/Creatinine Ratio 18.6 (10.0-20.0) Serum Glucose 141 mg/dL (74-106) Calcium Level 9.7 mg/dL (8.7-10.4) Total Bilirubin 0.5 mg/dL (0.2-1.0) Aspartate Amino Transferase (AST) 75 U/L (<34) Alanine Aminotransferase (ALT) 89 U/L (7-40) Alkaline Phosphatase 72 U/L (46-116) Total Protein 6.9 g/dL (5.7-8.2) Albumin 4.3 g/dL (3.2-4.8) Lactic Acid Level 1.5 mmol/L (0.4-2.0) Urine Color Light-yellow (Yellow) Urine Clarity Clear (Clear) Urine pH 6.0 (5.0-9.0) Urine Specific [place] 1.024 (1.001-1.035) Urine Protein Negative (Negative) Urine Ketones Negative (Negative) Urine Blood 1+ /uL (Negative) Urine Nitrite Negative (Negative) Urine Bilirubin Negative (Negative) Urine Urobilinogen Normal mg/dL (Negative) Urine Leukocyte Esterase 2+ /uL (Negative) Urine RBC 11 /hpf (0 - 4) Urine Microscopic WBC 32 /HPF (0-5) Urine Squamous Epithelial Cells Few /hpf (<5) Urine Transitional Epithelial Cells Few /hpf (<2) Urine Bacteria Few /hpf (None Seen) Urine Hyaline Casts Few /lpf (0 - 2) Urine Mucus Few (None Seen) Urine Glucose Trace mg/dL (Normal) Other Laboratory Tests 01/25/25 06:40 Brief Hx & Hospital Course: 55-year-old female with PMHx of hypertension, GERD, and fatty liver presented with 1 week of intermittent lower abdominal pain radiating to the back, associated with nausea and vomiting. Initial evaluation revealed transaminitis and a UTI. CT abdomen/pelvis without contrast demonstrated hepatomegaly with hypodense liver, likely secondary to steatosis; no obstruction or acute surgical pathology was seen. RUQ ultrasound confirmed hepatomegaly (20.1 cm) and a small gallstone without wall thickening or ductal dilation. UA supported diagnosis of acute complicated cystitis. She was started on IV Unasyn for presumed infectious gastroenteritis and UTI, with supportive therapy including IV fluids, ketorolac, acetaminophen, and morphine. Nausea and abdominal pain improved during admission. Liver enzymes trended stable and down-trending by discharge. Pertinent Labs/Imaging: CT A/P: Enlarged hypodense liver, no bowel obstruction or acute pathology RUQ Ultrasound: Hepatomegaly (20.1 cm), increased echogenicity, cholelithiasis without cholecystitis UA: Positive, consistent with UTI LFTs: AST peaked at 75, ALT at 89 (both improving by 01/25); Total bilirubin remained normal Diet: Clear liquid during hospitalization; advancing as tolerated. Discharge Condition: Stable, tolerating PO, pain controlled, labs improving. Follow-Up: PCP in 1 week GI for liver enzyme monitoring and fatty liver Consider hepatology if LFTs remain abnormal Plan Discussed With: Patient and Dr. Briceno Condition at Discharge: Stable Final Diagnosis/Problems List #Intractable abdominal pain #Intractable nausea #acute Gastroenteritis, infectious etiology likely #Acute complicated cystitis #Hypertension #GERD #Fatty liver #Transaminitis due to above Discharge Disposition: Home Discharge Instruct/Medications Diet: Consistent carbohydrate, Cardiac 2g Na,low cholest Diet comment: CONSISTENT CARBOHYDRATE Activity: Light activity Follow Up/Referral: fu with [facility] clinic Medications: see prescriptions Discharge Statement: "Patient was advised to return to the ER or call 911 if any headaches, dizziness, shortness of breath, chest pain, abdominal pain, bleeding, fevers, or worsening of medical condition. Patient was counseled about treatment plan, medications, possible side effects, patientverbalized understanding. All questions were answered to the best of my ability. This discharge took greater then 30 minutes in planning, reviewing documentation, counseling the patient, and discussing with other team members." ASSESSMENT ASSESSMENT Assessment acute intractable abdominal pain UTI Acute gastroenteritis Date of Service: Jan 26, 2025 Billing Provider: CRAIG BRICENO MD Common Visit Codes: 38934-PMH/OBS DISCH DAY >30min REGULO HERNANDEZ RESIDENT Jan 26, 2025 19:12 CRAIG BRICENO MD Feb 01, 2025 22:09
== END 2025-01-26 14:50 | disposition home or self-care (01) | DRG 463 ==
LOC: ER 23:02 → OVERFLOW 01-24 08:21 → WEST WING 01-24 20:52
PROVIDERS: ADMIT Student in an Organized Health Care Education/Training Program; ATTEND Student in an Organized Health Care Education/Training Program
DX: N30.01 Acute cystitis with hematuria (principal); K76.0 Fatty (change of) liver, not elsewhere classified; R16.0 Hepatomegaly, not elsewhere classified; A09 Infectious gastroenteritis and colitis, unspecified; I10 Essential (primary) hypertension; K21.9 Gastro-esophageal reflux disease without esophagitis; R74.01 Elevation of levels of liver transaminase levels; Z79.899 Other long term (current) drug therapy; Z88.5 Allergy status to narcotic agent; K80.20 Calculus of gallbladder without cholecystitis without obstruction
CPT/HCPCS: 36415; 74176; 76705; 80053; 81001; 83605; 85025; 96361; 96374; 96375; G0378; J1885; J2405; J2470; Q0162